=== PATIENT | male | born 1945 | race Caucasian/White ===

== ENCOUNTER → 2019-08-16 08:25 | Outpatient (CLI) | payer MEDICARE, BC ==
--- NOTE | 2019-08-19 11:12 | EC ---
PATIENT:DASIA RIGGINS DATE OF SERVICE: 08/16/19 SEX: M MEDICAL RECORD: [id number] DATE OF : [birth year] LOCATION:[facility] AGE OF PATIENT: 74 ADMISSION DATE: 08/16/19 REFERRING PHYSICIAN: INTERPRETING PHYSICIAN: WICHO VÁZQUEZ MD ECHOCARDIOGRAM REPORT ECHO CHARGES 4 ECHO COMPLETE Date: 08/16/19 CLINICAL DIAGNOSIS: HEART MURMUR ECHOCARDIOGRAPHIC MEASUREMENTS (adult normal given) AC root (d.<3.7cm) 3.7 cm LV Septum d (<1.2 cm> 1.6 cm Valve Excursion 1.7 cm LV Septum (systole) 1.9 cm Left Atria (s.<4.0cm> 4.0 cm LVPW d(<1.2cm) 1.9 cm RV (d.<2.3cm) 3.2 cm LVPW (sytole) 2.4 cm LV diastole(<5.6CM) 5.1 cm MV E-F(>70mm/sec) cm LV systole 2.8 cm LVOT Diameter 2.2 cm MV exc.(>10mm) 1.5 cm Est.ejection fraction (50-75%) % DOPPLER: LVIT cm/sec A 76.0 cm/sec E 58.0 cm/sec LA cm/sec RVSP 17 mmHg LVOT 128 cm/sec AOP1/2T m/s Asc. Ao 157 cm/sec RVOT 102 cm/sec RA cm/sec PA 128 cm/sec AV Gradient Peak 9.88 mmHg AV Mean 4.93 mmHg AV Area 3.3 cm MV Gradient Peak 3.15 mmHg MV Mean 1.41 mmHg MV Area cm COMMENTS: Model Builder: 2 CURRY KEENAN Reporting Specialist: 3 Dr. Sibley TAPE# PACS Pericardial Effusion N DATE OF SERVICE: Adequate 2D, color flow, spectral Doppler, and M-mode. LVH is present. LV internal dimensions are normal. Wall motion is normal. EF is greater than or equal to 55%. Aortic valve is tricuspid. No evidence of stenosis by Doppler interrogation. Left atrium is normal at 4.0 cm. Mitral valve shows no prolapse. Trace MR. Right-sided chambers are grossly normal. Trace TR. TRANSINT:[id number] Voice Confirmation ID: [id number] DOCUMENT ID: [id number] ECHOCARDIOGRAM REPORT [id number] GILSON,DASIA WICHO VÁZQUEZ MD at 1112 CC: [id number] DICTATION DATE: 08/19/19829 BUILDING ENGINEER: 08/19/19 1104 DEP CLI 08/16/19 [facility] [address] [place] [address]
== END | disposition home or self-care (01) ==
LOC: D.HCCECHO 08:25
PROVIDERS: ATTEND Internal Medicine Interventional Cardiology
DX: R01.1 Cardiac murmur, unspecified (principal)